=== PATIENT | female | born 1965 | race Caucasian/White ===

== ENCOUNTER 2024-11-06 12:20 | Emergency (ER) | payer OTHER, SELFPAY ==
[2024-11-06 12:33] VITALS: BP 126/73
[2024-11-06 12:50] LABS: % Basophils 0.3 % (0-2); % Eosinophils 0.9 % (0-6); % Immature Granulocytes 0.1 % (0-0.5); % Lymphocytes 38.8 % (20.5-51.1); % Monocytes 7.3 % (1.7-9.3); % Neutrophils 52.6 % (42.2-75.2); Absolute Eosinophils 0.1 10^3/uL (0-0.7); Absolute Lymphocytes 2.9 10^3/uL (1.2-3.4); Absolute Monocytes 0.5 10^3/uL (0.1-0.6); Absolute Neutrophils 3.9 10^3/uL (1.4-6.5); Hematocrit 36.3 % (37.0-47.0); Hemoglobin 12.4 g/dL (12.0-16.0); Mean Corp Hgb Conc. 34.2 g/dL (33.0-37.0); Mean Corpuscular Hgb 31.6 pg (27.0-31.0); Mean Corpuscular Volume 92.4 fL (81.0-99.0); Mean Platelet Volume 10.4 fL (7.4-10.4); Nucleated Red Blood Cells % 0 %; Platelet Count 203 10^3/uL (130-400); Red Blood Cell Count 3.93 10^6/uL (4.20-5.40); Red Cell Dist. Width 11.6 % (11.5-14.5); White Blood Cell Count 7.4 10^3/uL (4.8-10.8)
[2024-11-06 13:01] LABS: ALT (SGPT) 31 U/L (0-35); AST (SGOT) 31 U/L (14-36); Albumin 3.9 g/dl (3.5-5.0); Alkaline Phosphatase 59 U/L (38-126); Blood Urea Nitrogen 15 mg/dl (7-17); Calcium 8.6 mg/dl (8.4-10.2); Carbon Dioxide 30 mmol/L (22-30); Chloride 102 mmol/L (98-107); Glucose 117 mg/dl (70-99); Potassium 4.2 mmol/L (3.5-5.1); Sodium 139 mmol/L (135-145); Total Bilirubin 0.6 mg/dl (0.2-1.3); Total Protein 6.9 g/dl (6.3-8.2); eGFR > 60.00
[2024-11-06 13:07] LABS: COVID-19 Antigen Negative (Negative)
[2024-11-06 13:13] LABS: Troponin I < 0.012 ng/ml
[2024-11-06 16:12] VITALS: BP 146/72
[2024-11-06 16:18] VITALS: BMI 31.6
--- NOTE | 2024-11-06 16:18 | ED.GENMED ---
History of Present Illness
General
Chief Complaint: Chest Pain
Source: patient
Exam Limitations: none
Time Seen by Provider: 11/06/24 16:07
Nursing documentation reviewed up to this point in time: agreed with
History of Present Illness
History of Present Illness:
59 yo female on Methadone, hx asthmatic bronchitis, smoker, presents with URI symptoms past 3 days, experienced chest pain last night and again this a.m. with pain when lifting right arm so came to be sure it wasn't her heart. Denies n/v/d/c.
Has felt wheezing, using her Albuterol inhaler with little help
Granddaughter at home sick with URI
Past History
Past History
ED Past Medical History: Asthma and HTN
ED Past Surgical History: Appendectomy and Gynecological
Social History
Tobacco: Smoker
Alcohol: None
Personal: Single
Living: with family
Review of Systems
Review of Systems
Allergies reviewed?: Yes
All Other Systems: ROS reviewed and negative except as documented in HPI and ROS
Constitutional: Reports fatigue; Denies fever
EENT: Denies sore throat
Respiratory: Reports cough and trouble breathing
Cardiac: Denies chest pain
ABD/GI: Denies abdominal pain, nausea, vomiting or diarrhea
: Denies dysuria, frequency or difficulty voiding
Musculoskeletal: Reports no symptoms
Skin: Reports no symptoms
Neurological: Reports no symptoms
Phy Exam
Physical Exam
Physical Exam:
GENERAL: No acute distress. A&Ox3.
CONSTITUTIONAL: Afebrile.
EYES: clear, conjunctivae normal
ENMT: moist mucus membranes, Pharynx nl
RESPIRATORY: Regular respirations, nonlabored, lungs with good air movement, mild wheezes right mid to upper lung [place]
CARDIOVASCULAR: Regular rate and rhythm, no murmurs, no rubs.
GI: Soft, nontender, normal BS
MUSCULOSKELETAL: Moves with ease. Well perfused.
SKIN: Warm, dry, pink
PSYCH: Normal mood and affect. Well kept, interactive and appropriate
NEUROLOGIC: Awake, alert and oriented. No focal neurological deficits
Scores
Heart Score for Chest Pain Patients
STEMI patient?: Not applicable
Course
Orders/Labs/Results
Orders:
Orders
11/06/24 12:21
Electrocardiogram (*1) Urgent
Reason for Study: Other
Other Reason for Exam: Respiratory Distress
EKG- Treatment ONCE
CR Chest - 2 Views Urgent
Comment:
Reason For Exam: respiratory distress
11/06/24 12:42
COVID-19 Antigen Urgent
Source: Nasal Swab
Complete Blood Count/With Diff Urgent
Comprehensive Metabolic Panel Urgent
Troponin I Urgent
Influenza A+B Rapid Molecular Urgent
ISAURA Source: Nasal Swab
Specimen Description:
11/06/24 16:15
Ipratropium/Albuterol Sulfate [Duoneb] 3 ml INH R NOW STA
11/06/24 16:18
Dexamethasone [Decadron] 10 mg PO NOW STA
Abnormal Lab Results
11/06/24
12:42
RBC 3.93 L 10^6/uL
(4.20-5.40)
Hct 36.3 L %
(37.0-47.0)
MCH 31.6 H pg
(27.0-31.0)
Glucose 117 H mg/dl
(70-99)
11/06/24 12:42
11/06/24 12:42
Vital Signs
Initial and Last Documented VS:
Initial Vital Signs
Temp Pulse Resp BP Pulse Ox
98.8 F 62 18 126/73 92
11/06/24 12:33 11/06/24 12:33 11/06/24 12:33 11/06/24 12:33 11/06/24 12:33
Last Documented Vital Signs
Temp Pulse Resp BP Pulse Ox
98.8 F 62 18 146/72 100
11/06/24 12:33 11/06/24 12:33 11/06/24 12:33 11/06/24 16:12 11/06/24 16:44
MDM/Problems Addressed
Differential Diagnosis Includes:
bronchitis, PNA, covid, Flu
MDM/Problems Addressed:
59 yo female on Methadone, hx asthmatic bronchitis, smoker, presents with URI symptoms past 3 days, experienced chest pain last night and again this a.m. with pain when lifting right arm so came to be sure it wasn't her heart. Denies n/v/d/c.
Has felt wheezing, using her Albuterol inhaler with little help
Granddaughter at home sick with URI
CBC, CMP unremarkable
Troponin normal
COVID-negative
Influenza A and B are negative
EKG NSR
Mild wheezing left lung [place], DuoNeb ordered
59-year-old female with history of asthmatic bronchitis, smoker, productive cough, negative chest x-ray but will treat with one dose Decadron, Albuterol inhaler, antibiotics for atypical pneumonia/bronchitis in smoker
Pt info sent to out PCP Request Line to get PCP
*Critical Care Note
Total Time (30-74mins, 75-104mins- exclusive of procedures): Not Applicable
ED Attending Note
-
Portions of this chart may have been created with voice recognition software.� Occasional wrong word or��sound alike� substitutions may have occurred due to the inherent limitations of voice recognition software.
Discharge Plan
Departure
Patient Disposition: Home (Routine Discharge)
Date of Disposition: 11/06/24
Time of Disposition: 16:40
Patient with high blood pressure during this ER visit?: No
Condition: Good
Covid-19: Negative COVID-19
Discharge Problem:
Acute bronchitis
Instructions: Quitting smoking for adults, Bronchitis in adults - ED discharge instructions
Prescriptions:
New
azithromycin [Zithromax] 250 mg tablet
250 mg PO DAILY Qty: 6 0RF
Rx Instructions:
500 mg day one, 250 mg days 2-5
albuterol sulfate 90 mcg/actuation HFA aerosol inhaler
2 puff inhalation Q6H PRN (Reason: shortness of breath or wheezing) Qty: 6.7 0RF
Referrals:
NONE,* [Family Provider] -
Activity Restrictions/Additional Instructions:
As we discussed, someone will be calling you to suggest a primary care provider to follow up with
I sent a prescription to your pharmacy for Albuterol inhaler and Azithromycin antibiotic for your bronchitis.
You were also give a dose of steroid (Decadron) here today that should last for 3 days.
Interventions
Interventions:
*Risk Screen - Suicide Last Done: 11/06/24 12:33
*General Assessment Last Done: 11/06/24 12:33
*Neglect/Abuse Screening Last Done: 11/06/24 12:33
ED- Fall Risk Assessment Last Done: 11/06/24 16:19
*ED COVID-19 Vaccine History Last Done: 11/06/24 12:33
*Nursing Disposition Last Done: 11/06/24 16:44
ED- Cardiac Assessment Last Done: 11/06/24 16:19
Discharge Date and Time
Discharge Date/Time: 11/06/24 16:49
Print Language: [place] ISLAND[place]
[2024-11-06] MEDS: DECADRON 10 MG PO (16:23)
[2024-11-06] MEDS: DUONEB 3 ML INH (16:23)
== END 2024-11-06 16:49 | disposition home or self-care (01) ==
LOC: EMR 12:20
PROVIDERS: EMERGENCY PHYSICIAN Emergency Medicine
DX: J20.9 Acute bronchitis, unspecified (principal); I10 Essential (primary) hypertension; F17.200 Nicotine dependence, unspecified, uncomplicated; J45.909 Unspecified asthma, uncomplicated; Z90.49 Acquired absence of other specified parts of digestive tract
CPT/HCPCS: 99283; 94640; 71046; 80053; 84484; 85025; 87502; 87811; 93005

== ENCOUNTER 2025-01-23 16:39 | Emergency (ER) | payer OTHER, SELFPAY ==
[2025-01-23 16:43] VITALS: BP 157/78
[2025-01-23 17:12] LABS: Urine Albumin 1+ (Neg - Trace); Urine Bilirubin Negative (Negative); Urine Character Clear (Clear); Urine Color Yellow; Urine Glucose Negative (Negative); Urine Ketone Negative (Negative); Urine Leukocyte 1+ (Negative); Urine Nitrite Negative (Negative); Urine Occult Blood 4+ (Negative); Urine Urobilinogen Negative (Neg - 1+)
[2025-01-23 17:23] LABS: Hematocrit 34.8 % (37.0-47.0); Hemoglobin 11.5 g/dL (12.0-16.0); Mean Corpuscular Volume 93.8 fL (81.0-99.0); Mean Platelet Volume 10.8 fL (7.4-10.4); Platelet Count 238 10^3/uL (130-400); Red Blood Cell Count 3.71 10^6/uL (4.20-5.40); Red Cell Dist. Width 12.4 % (11.5-14.5); White Blood Cell Count 6.8 10^3/uL (4.8-10.8)
[2025-01-23 17:24] LABS: Urine Squamous Cell >30 /LPF (Few)
[2025-01-23 17:25] LABS: Urine Bacteria Few (Negative)
[2025-01-23 17:27] LABS: ALT (SGPT) 27 U/L (0-35); AST (SGOT) 30 U/L (14-36); Albumin 3.9 g/dl (3.5-5.0); Alkaline Phosphatase 62 U/L (38-126); Blood Urea Nitrogen 21 mg/dl (7-17); Calcium 9.4 mg/dl (8.4-10.2); Carbon Dioxide 32 mmol/L (22-30); Chloride 103 mmol/L (98-107); Glucose 89 mg/dl (70-99); Potassium 3.8 mmol/L (3.5-5.1); Sodium 141 mmol/L (135-145); Total Bilirubin 0.4 mg/dl (0.2-1.3); Total Protein 7.1 g/dl (6.3-8.2); eGFR > 60.00
[2025-01-23 18:19] LABS: % Basophils 0.6 % (0-2); % Lymphocytes 51.5 % (20.5-51.1); % Monocytes 9.8 % (1.7-9.3); % Neutrophils 36.1 % (42.2-75.2); Absolute Eosinophils 0.1 10^3/uL (0-0.7); Absolute Lymphocytes 3.5 10^3/uL (1.2-3.4); Absolute Monocytes 0.7 10^3/uL (0.1-0.6); Absolute Neutrophils 2.5 10^3/uL (1.4-6.5)
--- NOTE | 2025-01-23 18:31 | EDRN ---
Dr. Rand in room w/pt.
[2025-01-23 19:11] VITALS: BP 138/61; BMI 32.3
[2025-01-23 19:28] LABS: Urine Albumin 1+ (Neg - Trace); Urine Bilirubin Negative (Negative); Urine Character Clear (Clear); Urine Color Yellow; Urine Glucose Negative (Negative); Urine Ketone Negative (Negative); Urine Leukocyte 1+ (Negative); Urine Nitrite Negative (Negative); Urine Occult Blood 3+ (Negative); Urine Urobilinogen Negative (Neg - 1+)
[2025-01-23 19:41] LABS: Urine Squamous Cell 16-20 /LPF (Few); Urine White Cell 0-2 /HPF (0-5)
[2025-01-23 19:42] LABS: Urine Bacteria Few (Negative)
--- NOTE | 2025-01-23 20:11 | ED.GENMED ---
History of Present Illness
General
Chief Complaint: Urinary Symptoms
Time Seen by Provider: 01/23/25 18:13
History of Present Illness
History of Present Illness:
Patient complaining of bilateral flank pain urinary frequency and burning for days. No fever chills no nausea vomiting
Past History
Past History
ED Past Medical History: Asthma and HTN
ED Past Surgical History: Appendectomy and Gynecological
Social History
Tobacco: Smoker
Alcohol: None
Personal: Single
Living: with family
Phy Exam
Physical Exam
Physical Exam:
GENERAL: Alert and oriented in no apparent distress
EYE: Orbits normal.
NECK: Supple
CARDIAC: Regular rate and rhythm without any obvious murmurs.
LUNGS: Clear breath sounds,normal
ABDOMEN: Soft, mild suprapubic pressure. No rebound or guarding no mass or hernia no CVA tenderness
NEUROLOGICAL: Alert and oriented , grossly non-focal
SKIN: Warm and dry, no rash or lesion, no discoloration, skin intact.
MUSCULOSKELETAL: No edema,no deformity.Good color
PSYCH: Normal and appropriate interaction.
Course
Orders/Labs/Results
Orders:
Orders
01/23/25 16:52
Complete Blood Count/With Diff Urgent
Comprehensive Metabolic Panel Urgent
Urinalysis Reflex To Culture Urgent
Date Specimen was Collected: 01/23/25
Time Specimen was Collected: 16:45
Urine Microscopic Reflex Cult Urgent
Urine Culture Urgent
ISAURA Source: U
Specimen Description:
Date Specimen was Collected: 01/23/25
Time Specimen was Collected: 16:45
01/23/25 18:19
Parmar Placement- Treatment ONCE
Reason for insertion: Acute Retention
01/23/25 18:20
CT Abd/pel Without Iv Or Oral Urgent
Comment:
Reason For Exam: Back pain/urinary urgency
01/23/25 19:16
Urinalysis Reflex To Culture Urgent
Date Specimen was Collected: 01/23/25
Time Specimen was Collected: 19:11
Urine Microscopic Reflex Cult Urgent
Urine Culture Urgent
ISAURA Source: U
Specimen Description:
Date Specimen was Collected: 01/23/25
Time Specimen was Collected: 19:11
01/23/25 20:10
Cefdinir [Omnicef] 300 mg PO NOW STA
Abnormal Lab Results
01/23/25 01/23/25
16:52 19:16
RBC 3.71 L 10^6/uL
(4.20-5.40)
Hgb 11.5 L g/dL
(12.0-16.0)
Hct 34.8 L %
(37.0-47.0)
MPV 10.8 H fL
(7.4-10.4)
Absolute Lymphs (auto) 3.5 H 10^3/uL
(1.2-3.4)
Absolute Monos (auto) 0.7 H 10^3/uL
(0.1-0.6)
Neutrophils % 36.1 L %
(42.2-75.2)
Lymphocytes % 51.5 H %
(20.5-51.1)
Monocytes % 9.8 H %
(1.7-9.3)
Carbon Dioxide 32 H mmol/L
(22-30)
BUN 21 H mg/dl
(7-17)
Ur Occult Blood Reflex 4+ A 3+ A
(Negative) (Negative)
Leukocyte Esterase Rfl 1+ A 1+ A
(Negative) (Negative)
Urine RBC 7-10 A /HPF 7-10 A /HPF
(0-2) (0-2)
Urine Bacteria (Reflex) Few A Few A
(Negative) (Negative)
Urine Albumin (Reflex) 1+ A 1+ A
(Neg - Trace) (Neg - Trace)
01/23/25 16:52
01/23/25 16:52
Vital Signs
Initial and Last Documented VS:
Initial Vital Signs
Temp Pulse Resp BP Pulse Ox
97.9 F 54 16 157/78 98
01/23/25 16:43 01/23/25 16:43 01/23/25 16:43 01/23/25 16:43 01/23/25 16:43
Last Documented Vital Signs
Temp Pulse Resp BP Pulse Ox
97.9 F 52 16 138/61 98
01/23/25 16:43 01/23/25 19:11 01/23/25 19:11 01/23/25 19:11 01/23/25 19:11
*Radiology
Radiology exam reviewed: radiology read reviewed (Constipation. Midline abdominal wall defect with fat herniation)
*Pulse Oximetry
Patient hypoxic: no
*Critical Care Note
Total Time (30-74mins, 75-104mins- exclusive of procedures): Not Applicable
Update Note
Update Note:
Patient stable and nontoxic. UTI. No other significant issues. Antibiotics and follow-up
ED Attending Note
-
Portions of this chart may have been created with voice recognition software.� Occasional wrong word or��sound alike� substitutions may have occurred due to the inherent limitations of voice recognition software.
Discharge Plan
Departure
Patient Disposition: Home (Routine Discharge)
Date of Disposition: 01/23/25
Time of Disposition: 20:12
Patient with high blood pressure during this ER visit?: Yes
Discharge Problem:
UTI
Instructions: Urinary Tract Infection, Adult (DC), BLOOD PRESSURE
Prescriptions:
New
cefdinir 300 mg capsule
300 mg PO BID 7 Days Qty: 14 0RF
No Action
azithromycin [Zithromax] 250 mg tablet
250 mg PO DAILY Qty: 6 0RF
Rx Instructions:
500 mg day one, 250 mg days 2-5
albuterol sulfate 90 mcg/actuation HFA aerosol inhaler
2 puff inhalation Q6H PRN (Reason: shortness of breath or wheezing) Qty: 6.7 0RF
Referrals:
UNKNOWN - PT DOES,NOT KNOW [Family Provider] -
Activity Restrictions/Additional Instructions:
Your prescription was sent to your pharmacy
Stay well-hydrated
Follow-up closely with your primary physician
Interventions
Interventions:
*Risk Screen - Suicide Last Done: 01/23/25 16:45
*General Assessment Last Done: 01/23/25 19:11
*Neglect/Abuse Screening Last Done: 01/23/25 16:45
*ED COVID-19 Vaccine History Last Done: 01/23/25 19:11
Discharge Date and Time
Print Language: GREEK
[2025-01-23] MEDS: OMNICEF 300 MG PO (20:43)
[2025-01-23 20:52] VITALS: BP 106/46
== END 2025-01-23 21:37 | disposition home or self-care (01) ==
LOC: EMR 16:39
PROVIDERS: Emergency Medicine; EMERGENCY PHYSICIAN Emergency Medicine
DX: N39.0 Urinary tract infection, site not specified (principal); J45.909 Unspecified asthma, uncomplicated; I10 Essential (primary) hypertension; F17.200 Nicotine dependence, unspecified, uncomplicated; Z90.49 Acquired absence of other specified parts of digestive tract
CPT/HCPCS: 99284; 74176; 80053; 81003; 81015; 85025; 87086

== ENCOUNTER 2025-02-06 16:28 | Emergency (ER) | payer OTHER, SELFPAY ==
[2025-02-06 16:32] VITALS: BP 133/66
[2025-02-06 17:02] LABS: Urine Albumin 1+ (Neg - Trace); Urine Bilirubin Negative (Negative); Urine Character Clear (Clear); Urine Color Yellow; Urine Glucose Negative (Negative); Urine Ketone Negative (Negative); Urine Leukocyte 1+ (Negative); Urine Nitrite Negative (Negative); Urine Occult Blood 3+ (Negative); Urine Urobilinogen Negative (Neg - 1+)
[2025-02-06 17:04] LABS: ALT (SGPT) 23 U/L (0-35); AST (SGOT) 25 U/L (14-36); Albumin 4.1 g/dl (3.5-5.0); Alkaline Phosphatase 60 U/L (38-126); Blood Urea Nitrogen 21 mg/dl (7-17); Calcium 9.3 mg/dl (8.4-10.2); Carbon Dioxide 26 mmol/L (22-30); Chloride 111 mmol/L (98-107); Glucose 102 mg/dl (70-99); Potassium 4.1 mmol/L (3.5-5.1); Sodium 143 mmol/L (135-145); Total Bilirubin 0.5 mg/dl (0.2-1.3); Total Protein 6.8 g/dl (6.3-8.2); eGFR > 60.00
[2025-02-06 17:21] LABS: Urine Squamous Cell >30 /LPF (Few)
[2025-02-06 17:23] LABS: Urine Calcium Oxalate Crystals Present
[2025-02-06 17:24] LABS: Urine Bacteria Few (Negative); Urine Mucus Few
[2025-02-06 17:41] LABS: % Basophils 0.6 % (0-2); % Eosinophils 1.9 % (0-6); % Immature Granulocytes 0.2 % (0-0.5); % Lymphocytes 53.5 % (20.5-51.1); % Monocytes 11.4 % (1.7-9.3); % Neutrophils 32.4 % (42.2-75.2); Absolute Eosinophils 0.1 10^3/uL (0-0.7); Absolute Lymphocytes 2.8 10^3/uL (1.2-3.4); Absolute Monocytes 0.6 10^3/uL (0.1-0.6); Absolute Neutrophils 1.7 10^3/uL (1.4-6.5); Hematocrit 34.5 % (37.0-47.0); Hemoglobin 11.7 g/dL (12.0-16.0); Mean Corp Hgb Conc. 33.9 g/dL (33.0-37.0); Mean Corpuscular Volume 91.5 fL (81.0-99.0); Nucleated Red Blood Cells % 0 %; Platelet Count 190 10^3/uL (130-400); Red Blood Cell Count 3.77 10^6/uL (4.20-5.40); Red Cell Dist. Width 12.7 % (11.5-14.5); White Blood Cell Count 5.3 10^3/uL (4.8-10.8)
--- NOTE | 2025-02-06 19:50 | ED.GENMED ---
History of Present Illness
General
Chief Complaint: Urinary Symptoms
Time Seen by Provider: 02/06/25 19:39
History of Present Illness
History of Present Illness:
59-year-old female with history of hypertension presents emergency department for evaluation of urinary frequency and dysuria. She also reports bilateral flank pain. She was seen just over a week ago in this hospital for the same complaint at
which time a CT was negative for urinary calculus and she was treated empirically for UTI however subsequent urine culture was negative. She states after completing the antibiotic she has begun to have positional lightheadedness that is making it
hard for her to function. No chest pain or shortness of breath. She does note that she ran out of blood pressure medicine approximate 1 month ago and has a primary care follow-up next week
Past History
Past History
ED Past Medical History: Asthma and HTN
ED Past Surgical History: Appendectomy and Gynecological
Social History
Tobacco: Smoker
Alcohol: None
Personal: Single
Living: with family
Review of Systems
Review of Systems
Allergies reviewed?: Yes
All Other Systems: ROS reviewed and negative except as documented in HPI and ROS
Phy Exam
Physical Exam
Physical Exam:
GEN: Well appearing, NAD, WDWN
HEENT: Oral mucosa moist, no scleral icterus
Cardiac: Regular rate and rhythm, no murmur
Lung: No respiratory distress, no tachypnea
MSK: No gross deformity or injuries
Skin: Good color, no pallor or jaundice, no rashes
Neuro: AO x3, cranial nerves II through XII grossly intact, moves all extremities freely
Psych: Calm, cooperative
Course
Orders/Labs/Results
Orders:
Orders
02/06/25 16:43
Complete Blood Count/With Diff Urgent
Comprehensive Metabolic Panel Urgent
Urinalysis Reflex To Culture Urgent
Date Specimen was Collected: 02/06/25
Time Specimen was Collected: 16:34
Urine Microscopic Reflex Cult Urgent
Urine Culture Urgent
ISAURA Source: U
Specimen Description:
Date Specimen was Collected: 02/06/25
Time Specimen was Collected: 16:34
02/06/25 19:49
Electrocardiogram (*1) Urgent
Reason for Study: Syncope
EKG- Treatment ONCE
02/06/25 22:23
Clonidine [Catapres] 0.2 mg PO NOW STA
Abnormal Lab Results
02/06/25
16:43
RBC 3.77 L 10^6/uL
(4.20-5.40)
Hgb 11.7 L g/dL
(12.0-16.0)
Hct 34.5 L %
(37.0-47.0)
MPV 11.0 H fL
(7.4-10.4)
Neutrophils % 32.4 L %
(42.2-75.2)
Lymphocytes % 53.5 H %
(20.5-51.1)
Monocytes % 11.4 H %
(1.7-9.3)
Chloride 111 H mmol/L
(98-107)
BUN 21 H mg/dl
(7-17)
Glucose 102 H mg/dl
(70-99)
Ur Occult Blood Reflex 3+ A
(Negative)
Leukocyte Esterase Rfl 1+ A
(Negative)
Urine RBC 3-6 A /HPF
(0-2)
Urine Bacteria (Reflex) Few A
(Negative)
Urine Albumin (Reflex) 1+ A
(Neg - Trace)
02/06/25 16:43
02/06/25 16:43
Vital Signs
Initial and Last Documented VS:
Initial Vital Signs
Temp Pulse Resp BP Pulse Ox
98.9 F 57 18 133/66 93
02/06/25 16:32 02/06/25 16:32 02/06/25 16:32 02/06/25 16:32 02/06/25 16:32
Last Documented Vital Signs
Temp Pulse Resp BP Pulse Ox
98.9 F 62 16 149/62 99
02/06/25 16:32 02/06/25 22:41 02/06/25 22:41 02/06/25 22:41 02/06/25 22:41
MDM/Problems Addressed
MDM/Problems Addressed:
Patient's urinalysis is unremarkable, recent urine culture negative thus do not see indication for empiric UTI treatment. She was not orthostatic in the ED but given her mild hypertension and lack of compliance with her outpatient blood pressure
regimen will refill for short duration until primary care follow-up.
*Critical Care Note
Total Time (30-74mins, 75-104mins- exclusive of procedures): Not Applicable
ED Attending Note
-
Portions of this chart may have been created with voice recognition software.� Occasional wrong word or��sound alike� substitutions may have occurred due to the inherent limitations of voice recognition software.
Discharge Plan
Departure
Patient Disposition: Home (Routine Discharge)
Date of Disposition: 02/06/25
Time of Disposition: 22:23
Patient with high blood pressure during this ER visit?: Yes
Discharge Problem:
Dizziness, Urinary urgency
Instructions: BLOOD PRESSURE
Prescriptions:
New
clonidine HCl 0.2 mg tablet
0.2 mg PO BID Qty: 20 0RF
No Action
azithromycin [Zithromax] 250 mg tablet
250 mg PO DAILY Qty: 6 0RF
Rx Instructions:
500 mg day one, 250 mg days 2-5
albuterol sulfate 90 mcg/actuation HFA aerosol inhaler
2 puff inhalation Q6H PRN (Reason: shortness of breath or wheezing) Qty: 6.7 0RF
cefdinir 300 mg capsule
300 mg PO BID 7 Days Qty: 14 0RF
Referrals:
Darlene Sheppard DO [Family Provider] -
Interventions
Interventions:
*Risk Screen - Suicide Last Done: 02/06/25 16:32
*General Assessment Last Done: 02/06/25 16:32
*Neglect/Abuse Screening Last Done: 02/06/25 16:32
*ED COVID-19 Vaccine History Last Done: 02/06/25 16:32
*Nursing Disposition Last Done: 02/06/25 22:41
ED-Female Genitourinary Assessment Last Done: 02/06/25 20:21
Discharge Date and Time
Discharge Date/Time: 02/06/25 22:42
Print Language: TURKISH
[2025-02-06 20:21] VITALS: BP 137/71; BP 157/85; BP 160/84; PULSE 62; PULSE 65; BMI 33.4
[2025-02-06] MEDS: CATAPRES 0.2 MG PO (22:32)
[2025-02-06 22:41] VITALS: BP 149/62
== END 2025-02-06 22:42 | disposition home or self-care (01) ==
LOC: EMR 16:28
PROVIDERS: Student in an Organized Health Care Education/Training Program; EMERGENCY PHYSICIAN Emergency Medicine; FAMILY PHYSICIAN Family Medicine
DX: R39.15 Urgency of urination (principal); R42 Dizziness and giddiness; R35.0 Frequency of micturition; R30.0 Dysuria; R10.9 Unspecified abdominal pain; I10 Essential (primary) hypertension; J45.909 Unspecified asthma, uncomplicated; F17.200 Nicotine dependence, unspecified, uncomplicated
CPT/HCPCS: 99283; 80053; 81003; 81015; 85025; 87086; 93005